=== PATIENT | male | born 1950 | race Hispanic/Latino ===

== ENCOUNTER 2023-07-04 19:47 | Emergency (ER) | payer MEDICARE, MEDICAID ==
[2023-07-04] MEDS ORDERED: cefTRIAXone (ROCEPHIN) 2 GM VIAL ONE (20:16)
[2023-07-04] MEDS ORDERED: Sodium Chloride 0.9% 250 ML 250 ML ONE (20:16)
[2023-07-04] MEDS ORDERED: Azithromycin 500 MG VIAL ONE (20:16)
[2023-07-04] MEDS ORDERED: Acetaminophen 500 MG TAB ONE (20:18)
[2023-07-04 20:26] LABS: Hematocrit 49.3 % (42.0-52.0); Mean Corpuscular HGB CONC 34.5 g/dL (32.0-36.0); Mean Corpuscular Hemoglobin 32.4 pg (27.0-31.0); Mean Corpuscular Volume 93.9 fL (78.0-98.0); Mean Platelet Volume 10.6 fL (7.4-10.4); Platelet Count 124 10x3/uL (130-400); RBC Distribution Width 12.2 % (11.5-14.5); Red Blood Cell (RBC) Count 5.25 mill/uL (4.70-6.10)
[2023-07-04 20:33] LABS: ALT (SGPT) 41 U/L (8-55); AST (SGOT) 42 U/L (5-34); Albumin 3.8 g/dL (3.4-4.8); Alkaline Phosphatase 77 U/L (40-110); Anion Gap 13 mmol/L (10-20); BUN (Urea Nitrogen) 17 mg/dL (8.4-25.7); Bilirubin, Total 0.8 mg/dL (0.2-1.2); Calc. Creatinine Clearance 0 mL/min (70-130); Calcium 9.1 mg/dL (7.8-10.44); Carbon Dioxide 26 mmol/L (23-31); Chloride 100 mmol/L (98-107); Estimated GFR 74; Globulin 3.9 g/dL (2.4-3.5); Glucose 105 mg/dL (83-110); Magnesium 2.1 mg/dL (1.6-2.6); Potassium 4.3 mmol/L (3.5-5.1); Protein, Total 7.7 g/dL (5.8-8.1); Sodium 135 mmol/L (136-145)
[2023-07-04 20:53] LABS: Band 15 % (5-11); Eosinophils 1 % (0-10); Lymphocytes 13 % (21-51); Monocytes 17 % (0-10); Neutrophil 55 % (42-75); Platelet Adequacy Comment Platelets Decreased; RBC Morphology Within Normal Limits; Smudge Cells 13.9 %
[2023-07-04 22:17] LABS: Influenza A by NAA Not Detected (NotDetected); Influenza B by NAA Not Detected (NotDetected); SARS-CoV-2 NAA Rapid Test Not Detected (NotDetected)
[2023-07-04 23:29] LABS: Bacteria/HPF None Seen HPF (None Seen); Bilirubin Negative (Negative); Blood, Urine 1+ (Negative); CAUTI Indications for Culture Dysuria,urgency,freq; Clarity Clear (Clear); Glucose, Urine (Dipstick) Normal (Negative); Ketone, Urine Trace mg/dL (Negative); Leukocyte Negative Leu/uL (Negative); Nitrite Negative (Negative); Protein, Urine (Dipstick) 10 mg/dL (Neg-Trace); RBC/HPF 0-3 HPF (0-3); Specific Gravity, Urine 1.013 (1.002-1.036); Squamous Epithelial 0-3 HPF (0-3); Urobilinogen Normal mg/dL (Less than 2); WBC/HPF 0-3 HPF (0-3)
[2023-07-04 23:43] LABS: Urine Culture Reflex No No
== END 2023-07-05 00:11 | disposition home or self-care (01) ==
LOC: ERS 19:47
DX: D69.6 Thrombocytopenia, unspecified (principal); B34.9 Viral infection, unspecified
CPT/HCPCS: 0240U; 71045; 80053; 81001; 83605; 83735; 85025; 87040; 87086; 93005; J0456; 36415; 96365; 96367; J0696; J7050